=== PATIENT | male | born 1985 | race Caucasian/White ===

== ENCOUNTER 2017-09-25 21:39 | Emergency (ER) | payer OTHER ==
[~2017-09-25] VITALS: Ht 165.1 cm; Wt 81.8 kg
[2017-09-25 22:08] VITALS: BP 118/70
[2017-09-25 22:44] LABS: BASOPHILS # (AUTO) 0.2 K/uL (0.00-0.22); EOSINOPHILS # (AUTO) 0.1 K/uL (0-0.4); EOSINOPHILS % (AUTO) 0.8 % (0.0-4.0); HEMATOCRIT 46.7 % (36-52); HEMOGLOBIN 15.3 g/dL (12.0-18.0); LYMPHOCYTES # (AUTO) 1.5 K/uL (2.0-11.5); LYMPHOCYTES % (AUTO) 15.2 % (20.5-51.1); MEAN CORPUSCULAR HEMOGLOBIN 30 pg (27-31); MEAN CORPUSCULAR HGB CONC 33 g/dL (33-37); MEAN CORPUSCULAR VOLUME 91 fL (80-94); MONOCYTES # (AUTO) 1.2 K/uL (0.8-1.0); MONOCYTES % (AUTO) 12.2 % (1.7-9.3); NEUTROPHILS # (AUTO) 6.6 K/uL (1.8-7.7); PLATELET COUNT (AUTO) 269 K/uL (140-450); RED BLOOD CELL COUNT(AUTO) 5.11 MIL/uL (4.20-6.10); RED CELL DISTRIBUTION WIDTH 12.8 % (11.6-13.7); WHITE BLOOD COUNT (AUTO) 9.6 K/uL (4.8-10.8)
[2017-09-25 22:57] LABS: ANION GAP 15.5 (8-16); CARBON DIOXIDE 27.2 mmol/L (21-32); POTASSIUM 3.7 mmol/L (3.5-5.1)
[2017-09-25 23:00] LABS: NEUTROPHILS % (AUTO) 69.8 % (42.2-75.2)
[2017-09-25 23:01] LABS: ALBUMIN 3.6 g/dL (3.4-5.0); TOTAL BILIRUBIN 0.5 mg/dL (0.0-1.0)
--- NOTE | 2017-09-26 01:12 | NUR ---
PT AMBULATED TO OF2
--- NOTE | 2017-09-26 01:13 | NUR ---
PATIENT PRESENTS TO ED WITH C/O ABD PAIN, N/V/D X 4 DAYS ; SKIN IS PINK/WARM/DRY; AAOX4 WITH EVEN AND STEADY GAIT; LUNGS CLEAR BL; HR EVEN AND REGULAR; PT DENIES ANY FEVER, CP, SOB, OR COUGH AT THIS TIME; PATIENT STATES PAIN OF 10/10 AT THIS TIME; VSS; PATIENT POSITIONED FOR COMFORT; HOB ELEVATED; BEDRAILS UP X2; BED DOWN. ER MD MADE AWARE OF PT STATUS.
--- NOTE | 2017-09-26 01:55 | NUR ---
Patient being evaluated by physician at bedside.
[2017-09-26 02:11] VITALS: BP 120/76
--- NOTE | 2017-09-26 02:11 | NUR ---
Patient discharged with v/s stable. Written and verbal after care instructions given and explained. Patient alert, oriented and verbalized understanding of instructions. Ambulatory with steady gait. All questions addressed prior to discharge. ID band removed. Patient advised to follow up with PMD. Rx of NORCO 5/325MG given. Patient educated on indication of medication including possible reaction and side effects. Opportunity to ask questions provided and answered.
== END 2017-09-26 02:11 | disposition home or self-care (01) ==
LOC: MED 21:39
DX: A08.4 Viral intestinal infection, unspecified (principal)
CPT/HCPCS: 36415; 74021; 80053; 85025; 99285